=== PATIENT | female | born 1955 | race Caucasian/White ===

== ENCOUNTER → 2017-09-07 | Outpatient (CLI) | payer OTHER ==
[~2017-09-07] MED LIST: IOPAMIDOL (ISOVUE-300) 100 ML BTL ONE
== END ==
LOC: FIMAGING 14:12
PROVIDERS: ATTEND Physical Medicine & Rehabilitation
DX: R59.0 Localized enlarged lymph nodes (principal); M50.30 Other cervical disc degeneration, unspecified cervical region; M43.12 Spondylolisthesis, cervical region; E07.9 Disorder of thyroid, unspecified
CPT/HCPCS: Q9967

== ENCOUNTER → 2017-09-29 | Outpatient (CLI) | payer OTHER | LOC: CIMAGING 13:24 | PROVIDERS: ATTEND Internal Medicine Hematology & Oncology | DX: J98.09 Other diseases of bronchus, not elsewhere classified (principal); D47.2 Monoclonal gammopathy | CPT/HCPCS: 71260-PO; Q9967 ==